=== PATIENT | male | born 1935 | race Caucasian/White ===

== ENCOUNTER 2018-04-18 10:21 | Inpatient (IN) | payer BC ==
[~2018-04-18] VITALS: Ht 188 cm; Wt 89.9 kg
[2018-04-18] MEDS ORDERED: CALCIUM CITRAT950 MG (11:05)
[2018-04-18] MEDS ORDERED: KLONOPIN 0.5MG0.5 MG PO (11:06)
[2018-04-18] MEDS ORDERED: FIRMAGON80 MG SQ (11:10)
[2018-04-18] MEDS ORDERED: LASIX 20MG TABL20 MG PO (11:10)
[2018-04-18] MEDS ORDERED: JANTOVEN5 MG PO (11:11)
[2018-04-18] MEDS ORDERED: REMERON 15M15 MG/TA1 PO (11:12)
[2018-04-18] MEDS ORDERED: LUMIGAN 5 ML5 M1 OP (11:12)
[2018-04-18] MEDS ORDERED: KLOR-CON 1010 MEQ PO (11:12)
[2018-04-18] MEDS ORDERED: K-TAB10 (11:13)
[2018-04-18] MEDS ORDERED: SENOKOT S 50 MG1 TAB PO (11:14)
[2018-04-18] MEDS ORDERED: BETIMOL 0.5% OPH5 ML OP (11:14)
[2018-04-18] MEDS ORDERED: VITAMIN D31000 I1 PO (11:15)
[2018-04-18] MEDS ORDERED: XGEVA120 MG/1.7 SQ (11:16)
[2018-04-18 11:55] LABS: BASO # 0.1 (0.0-0.2); BASO % 0.3 % (0.0-2.0); EOS % 0.1 % (0-4.0); GRAN % 84.6 % (42.2-75.2); HEMOGLOBIN 11.9 g/dl (13.5-18.0); LYMPH # 1.1 (1.2-3.4); LYMPH % 6.3 % (20.0-51.0); MEAN CELL VOLUME 100 fl (80.0-100.0); MEAN CORPUSCULAR HEMOGLOBIN 33 pg (27.0-31.0); MEAN CORPUSCULAR HGB CONC 33 g/dl (33.0-37.0); MEAN PLATELET VOLUME 9.9 fl (7.4-10.4); MONO # 1.4 (0.1-0.6); PLATELET COUNT 241 K/mm3 (130-400); RED BLOOD COUNT 3.57 M/mm3 (4.20-5.60); REDCELL DISTRIBUTION WIDTH-CV 15.4 % (11.5-14.5)
[2018-04-18 11:56] LABS: HEMATOCRIT 35.8 % (42.0-52.0)
[2018-04-18 12:00] LABS: PROTHROMBIN TIME 23.2 SECONDS (9.7-12.8)
[2018-04-18 12:10] LABS: ALBUMIN 3.2 gm/dL (3.5-5.0); BILIRUBIN,TOTAL 0.4 mg/dL (0.0-1.0); CALCIUM 7.8 mg/dL (8.4-10.2); CREATININE, serum 0.63 mg/dL (0.66-1.25); POTASSIUM 3.5 mmol/L (3.4-5.0); TOTAL PROTEIN 5.8 gm/dL (6.4-8.2)
[2018-04-18 12:21] LABS: TROPONIN-I 0.022 ng/mL (0.000-0.034)
[2018-04-18 13:26] LABS: COLLECTION METHOD CLEAN CATCH
[2018-04-18 13:34] LABS: MUCOUS Present /lpf; PH 6 (5-8); SQUAMOUS EPITHELIAL 0-2 /hpf; URINE APPEARANCE Clear; URINE BACTERIA None Seen /hpf; URINE BILIRUBIN Negative (NEGATIVE); URINE BLOOD 1+ (NEGATIVE); URINE COLOR Yellow; URINE GLUCOSE Negative (NEGATIVE); URINE KETONE Negative (NEGATIVE); URINE LEUKOCYTE ESTERASE Negative (NEGATIVE); URINE NITRATE Negative (NEGATIVE); URINE PROTEIN(semi-quant) Negative (NEGATIVE); URINE UROBILINOGEN Negative (NEGATIVE)
[2018-04-18 18:37] VITALS: BP 113/65; PULSE 96; TEMP 98.3
[2018-04-18] MEDS ORDERED: PREDNISONE 5MG5 MG PO (18:57)
[2018-04-18 20:28] VITALS: BP 109/77; PULSE 84; TEMP 98.3
[2018-04-19] VITALS (10 sets, daily range): BP systolic 96–127; BP diastolic 45–80; PULSE 78–105; TEMP 98–98.6
[2018-04-19 06:10] LABS: HEMOGLOBIN 10.7 g/dl (13.5-18.0); MEAN CELL VOLUME 101 fl (80.0-100.0); MEAN CORPUSCULAR HEMOGLOBIN 33 pg (27.0-31.0); MEAN CORPUSCULAR HGB CONC 33 g/dl (33.0-37.0); MEAN PLATELET VOLUME 10.1 fl (7.4-10.4); PLATELET COUNT 213 K/mm3 (130-400); RED BLOOD COUNT 3.23 M/mm3 (4.20-5.60); REDCELL DISTRIBUTION WIDTH-CV 15.7 % (11.5-14.5)
[2018-04-19 06:11] LABS: HEMATOCRIT 32.6 % (42.0-52.0)
[2018-04-19 06:21] LABS: CALCIUM 7.5 mg/dL (8.4-10.2); CREATININE, serum 0.64 mg/dL (0.66-1.25); MAGNESIUM 1.9 mg/dL (1.6-2.3)
[2018-04-19 06:23] LABS: INR 2.2 (0.8-3.0); PROTHROMBIN TIME 25.1 SECONDS (9.7-12.8)
[2018-04-19 06:28] LABS: BAND 6 % (0-10); LYMPHOCYTE 8 % (20.0-51.0); METAMYELOCYTE 2 % (0-0); NEUTROPHILS 73 % (42.0-75.2); PLATELET ESTIMATE NORMAL (NORMAL)
[2018-04-19 09:48] LABS: SYNOVIAL FL. MONONUCLEAR 4.4 % (0-75); SYNOVIAL FLUID RBC 21000 /mm3 (0-0)
[2018-04-19 09:49] LABS: SYNOVIAL FLUID APPEARANCE CLOUDY; SYNOVIAL FLUID COLOR BROWN
[2018-04-19 09:58] LABS: SYNOVIAL FL. MONONUCLEAR 1.8 % (0-75); SYNOVIAL FLUID RBC 28000 /mm3 (0-0); SYNOVIAL FLUID WBC 125915 /mm3 (200-600)
[2018-04-19 10:18] LABS: SYNOVIAL FLUID WBC 34590 /mm3 (200-600)
[2018-04-19 10:19] LABS: SYNOVIAL FLUID APPEARANCE CLOUDY; SYNOVIAL FLUID COLOR BROWN
[2018-04-19 12:52] LABS: FOLATE (FOLIC ACID) 14.7 ng/mL (7.0-31.4)
[2018-04-20 00:30] VITALS: BP 102/61; PULSE 88
[2018-04-20 04:26] VITALS: BP 110/42; PULSE 94; TEMP 97.5
[2018-04-20 06:34] LABS: MEAN CELL VOLUME 104 fl (80.0-100.0); MEAN CORPUSCULAR HGB CONC 32 g/dl (33.0-37.0); MEAN PLATELET VOLUME 10.3 fl (7.4-10.4); PLATELET COUNT 205 K/mm3 (130-400); RED BLOOD COUNT 2.77 M/mm3 (4.20-5.60); REDCELL DISTRIBUTION WIDTH-CV 15.9 % (11.5-14.5)
[2018-04-20 06:44] LABS: HEMATOCRIT 28.9 % (42.0-52.0); HEMOGLOBIN 9.3 g/dl (13.5-18.0); MEAN CORPUSCULAR HEMOGLOBIN 34 pg (27.0-31.0)
[2018-04-20 06:50] LABS: CALCIUM 6.5 mg/dL (8.4-10.2); CREATININE, serum 0.71 mg/dL (0.66-1.25); POTASSIUM 3.8 mmol/L (3.4-5.0)
[2018-04-20 07:23] LABS: BAND 9 % (0-10); LYMPHOCYTE 2 % (20.0-51.0); NEUTROPHILS 82 % (42.0-75.2); PLATELET ESTIMATE NORMAL (NORMAL)
[2018-04-20 08:25] VITALS: BP 120/45; PULSE 93; TEMP 98
[2018-04-20 12:11] VITALS: BP 133/54; PULSE 94; TEMP 98.1
[2018-04-20 12:11] LABS: ALBUMIN 2.5 gm/dL (3.5-5.0); BILIRUBIN,TOTAL 0.4 mg/dL (0.0-1.0)
[2018-04-20 12:30] LABS: TOTAL PROTEIN 5.2 gm/dL (6.4-8.2)
[2018-04-20 16:41] VITALS: BP 131/43; PULSE 96; TEMP 98.1
[2018-04-20 21:03] VITALS: BP 146/68; PULSE 84; TEMP 98.4
[2018-04-21] VITALS (9 sets, daily range): BP systolic 108–127; BP diastolic 43–59; PULSE 81–96; TEMP 97.8–98.8
[2018-04-21 07:52] LABS: MEAN CELL VOLUME 103 fl (80.0-100.0); MEAN CORPUSCULAR HGB CONC 33 g/dl (33.0-37.0); MEAN PLATELET VOLUME 9.9 fl (7.4-10.4); PLATELET COUNT 215 K/mm3 (130-400); RED BLOOD COUNT 2.39 M/mm3 (4.20-5.60)
[2018-04-21 07:53] LABS: HEMATOCRIT 24.5 % (42.0-52.0); HEMOGLOBIN 8.1 g/dl (13.5-18.0); MEAN CORPUSCULAR HEMOGLOBIN 34 pg (27.0-31.0)
[2018-04-21 07:54] LABS: INR 3.3 (0.8-3.0); PROTHROMBIN TIME 38.1 SECONDS (9.7-12.8)
[2018-04-21 07:57] LABS: CALCIUM 6.4 mg/dL (8.4-10.2); CREATININE, serum 0.66 mg/dL (0.66-1.25); POTASSIUM 3.1 mmol/L (3.4-5.0)
[2018-04-21 08:06] LABS: LYMPHOCYTE 8 % (20.0-51.0); NEUTROPHILS 77 % (42.0-75.2); PLATELET ESTIMATE NORMAL (NORMAL)
[2018-04-21 08:08] LABS: ANISOCYTOSIS 1+
[2018-04-21 13:12] LABS: HEMATOCRIT 24.1 % (42.0-52.0)
[2018-04-22] VITALS (7 sets, daily range): BP systolic 116–148; BP diastolic 44–61; PULSE 87–97; TEMP 97.6–98.6
[2018-04-22 06:18] LABS: INR 1.7 (0.8-3.0); PROTHROMBIN TIME 19.6 SECONDS (9.7-12.8)
[2018-04-22 06:19] LABS: BASO % 0.3 % (0.0-2.0); GRAN # 7.1 (1.4-6.5); GRAN % 76.1 % (42.2-75.2); LYMPH % 10.2 % (20.0-51.0); MEAN CELL VOLUME 102 fl (80.0-100.0); MEAN CORPUSCULAR HGB CONC 33 g/dl (33.0-37.0); MEAN PLATELET VOLUME 10.1 fl (7.4-10.4); MONO # 1.2 (0.1-0.6); MONO % 12.9 % (1.7-9.3); PLATELET COUNT 211 K/mm3 (130-400); REDCELL DISTRIBUTION WIDTH-CV 15.8 % (11.5-14.5)
[2018-04-22 06:22] LABS: HEMATOCRIT 21.4 % (42.0-52.0); HEMOGLOBIN 7.1 g/dl (13.5-18.0); MEAN CORPUSCULAR HEMOGLOBIN 34 pg (27.0-31.0)
[2018-04-22 06:45] LABS: CALCIUM 6.3 mg/dL (8.4-10.2); CREATININE, serum 0.55 mg/dL (0.66-1.25); POTASSIUM 3.5 mmol/L (3.4-5.0)
[2018-04-23] VITALS (8 sets, daily range): BP systolic 91–142; BP diastolic 38–58; PULSE 42–96; TEMP 97.2–98.3
[2018-04-23 06:02] LABS: BASO % 0.4 % (0.0-2.0); GRAN # 5.9 (1.4-6.5); GRAN % 73.2 % (42.2-75.2); LYMPH # 0.9 (1.2-3.4); LYMPH % 11.6 % (20.0-51.0); MEAN CELL VOLUME 98 fl (80.0-100.0); MEAN CORPUSCULAR HGB CONC 33 g/dl (33.0-37.0); MEAN PLATELET VOLUME 9.4 fl (7.4-10.4); MONO # 1.2 (0.1-0.6); MONO % 14.3 % (1.7-9.3); PLATELET COUNT 248 K/mm3 (130-400); RED BLOOD COUNT 2.31 M/mm3 (4.20-5.60); REDCELL DISTRIBUTION WIDTH-CV 17.4 % (11.5-14.5)
[2018-04-23 06:03] LABS: HEMATOCRIT 22.6 % (42.0-52.0); HEMOGLOBIN 7.5 g/dl (13.5-18.0); MEAN CORPUSCULAR HEMOGLOBIN 32 pg (27.0-31.0)
[2018-04-23 06:04] LABS: INR 1.4 (0.8-3.0); PROTHROMBIN TIME 16.4 SECONDS (9.7-12.8)
[2018-04-23 06:10] LABS: CALCIUM 6.6 mg/dL (8.4-10.2); CREATININE, serum 0.54 mg/dL (0.66-1.25); POTASSIUM 3.5 mmol/L (3.4-5.0)
[2018-04-24 05:13] VITALS: BP 103/50; PULSE 89; TEMP 98.2
[2018-04-24 06:09] LABS: BASO % 0.6 % (0.0-2.0); EOS % 0.1 % (0-4.0); GRAN # 4.9 (1.4-6.5); GRAN % 68.5 % (42.2-75.2); LYMPH # 1.1 (1.2-3.4); MEAN CELL VOLUME 97 fl (80.0-100.0); MEAN CORPUSCULAR HGB CONC 34 g/dl (33.0-37.0); MEAN PLATELET VOLUME 9.7 fl (7.4-10.4); MONO % 14.2 % (1.7-9.3); PLATELET COUNT 311 K/mm3 (130-400); RED BLOOD COUNT 2.67 M/mm3 (4.20-5.60); REDCELL DISTRIBUTION WIDTH-CV 17.1 % (11.5-14.5)
[2018-04-24 06:19] LABS: ALBUMIN 2.6 gm/dL (3.5-5.0); CALCIUM 7.2 mg/dL (8.4-10.2); CREATININE, serum 0.57 mg/dL (0.66-1.25); PHOSPHOROUS 1.4 mg/dL (2.5-4.5); POTASSIUM 3.5 mmol/L (3.4-5.0)
[2018-04-24 06:22] LABS: HEMOGLOBIN 8.7 g/dl (13.5-18.0); MEAN CORPUSCULAR HEMOGLOBIN 33 pg (27.0-31.0)
[2018-04-24 08:52] VITALS: BP 113/48; PULSE 88; TEMP 97.5
[2018-04-24 12:50] VITALS: BP 134/64; PULSE 109; TEMP 98.5
[2018-04-24 16:00] VITALS: BP 103/51; PULSE 88; TEMP 97.9
[2018-04-24 20:00] VITALS: BP 102/49; PULSE 97; TEMP 97.2
[2018-04-25] VITALS: BP 138/79; PULSE 81; TEMP 97.6
[2018-04-25 04:00] VITALS: BP 138/59; PULSE 84; TEMP 97.7
[2018-04-25 05:44] LABS: BASO # 0.1 (0.0-0.2); BASO % 1.2 % (0.0-2.0); EOS % 0.3 % (0-4.0); GRAN # 4.5 (1.4-6.5); GRAN % 66.3 % (42.2-75.2); HEMATOCRIT 24.1 % (42.0-52.0); LYMPH # 1.1 (1.2-3.4); MEAN CELL VOLUME 98 fl (80.0-100.0); MEAN CORPUSCULAR HEMOGLOBIN 33 pg (27.0-31.0); MEAN CORPUSCULAR HGB CONC 33 g/dl (33.0-37.0); MEAN PLATELET VOLUME 9.2 fl (7.4-10.4); MONO # 1.1 (0.1-0.6); MONO % 15.8 % (1.7-9.3); PLATELET COUNT 321 K/mm3 (130-400); RED BLOOD COUNT 2.45 M/mm3 (4.20-5.60); REDCELL DISTRIBUTION WIDTH-CV 16.9 % (11.5-14.5)
[2018-04-25 06:05] LABS: CALCIUM 6.8 mg/dL (8.4-10.2); CREATININE, serum 0.54 mg/dL (0.66-1.25); PHOSPHOROUS 2.3 mg/dL (2.5-4.5); POTASSIUM 3.6 mmol/L (3.4-5.0)
[2018-04-25 09:07] VITALS: BP 80/61; PULSE 91; TEMP 98
[2018-04-25 09:58] VITALS: BP 124/53
[2018-04-25 11:36] VITALS: BP 109/46; PULSE 82; TEMP 97.5
[2018-04-25 16:24] VITALS: BP 117/52; PULSE 97; TEMP 97.6
[2018-04-26 04:46] VITALS: BP 138/66; PULSE 95; TEMP 97.7
[2018-04-26 07:28] LABS: BASO # 0.1 (0.0-0.2); BASO % 1.4 % (0.0-2.0); EOS # 0.1 (0.0-0.7); EOS % 0.9 % (0-4.0); GRAN % 65.1 % (42.2-75.2); LYMPH # 1.2 (1.2-3.4); LYMPH % 16.1 % (20.0-51.0); MEAN CELL VOLUME 98 fl (80.0-100.0); MEAN CORPUSCULAR HGB CONC 33 g/dl (33.0-37.0); MEAN PLATELET VOLUME 9.3 fl (7.4-10.4); MONO # 1.2 (0.1-0.6); PLATELET COUNT 345 K/mm3 (130-400); RED BLOOD COUNT 2.52 M/mm3 (4.20-5.60); REDCELL DISTRIBUTION WIDTH-CV 16.6 % (11.5-14.5)
[2018-04-26 07:30] LABS: HEMATOCRIT 24.7 % (42.0-52.0); HEMOGLOBIN 8.2 g/dl (13.5-18.0); MEAN CORPUSCULAR HEMOGLOBIN 33 pg (27.0-31.0)
[2018-04-26 07:38] LABS: CALCIUM 7.4 mg/dL (8.4-10.2); CREATININE, serum 0.56 mg/dL (0.66-1.25); MAGNESIUM 1.8 mg/dL (1.6-2.3); POTASSIUM 3.5 mmol/L (3.4-5.0)
[2018-04-26 08:34] VITALS: BP 127/58; PULSE 94; TEMP 97.3
[2018-04-26 11:59] VITALS: BP 114/49; PULSE 80; TEMP 98.1
[2018-04-26] MEDS ORDERED: ASPIRIN 81M81 MG/TA2 PO (16:08)
[2018-04-26] MEDS ORDERED: REMERON 15M15 MG/TA1 PO (16:09)
[2018-04-26 16:10] VITALS: BP 112/50; PULSE 88; TEMP 97.4
[2018-04-26] MEDS ORDERED: ROCEPHIN VIA1 G/VIAL IV (16:15)
[2018-04-26] MEDS ORDERED: VANCOCIN HCL1 GM IV (16:15)
[2018-04-26 17:46] VITALS: BP 112/50; PULSE 88; TEMP 97.4
[2018-04-26 20:00] VITALS: BP 116/56; PULSE 84; TEMP 98
[2018-04-27] VITALS: BP 108/52; PULSE 91; TEMP 98.1
[2018-04-27 04:00] VITALS: BP 110/54; PULSE 89; TEMP 98
== END 2018-04-27 05:10 | DRG 488 ==
LOC: COL.ER 10:21 → SURG 15:12
PROVIDERS: Emergency Medicine; Family Medicine; Orthopaedic Surgery; Orthopaedic Surgery Sports Medicine; Physician Assistant
PROC: 0SBC4ZZ Excision of Right Knee Joint, Percutaneous Endoscopic Approach (ICD-10-PCS; 2018-04-19)
PROC: 0S9D40Z Drainage of Left Knee Joint with Drainage Device, Percutaneous Endoscopic Approach (ICD-10-PCS; 2018-04-19)
PROC: 0S9C40Z Drainage of Right Knee Joint with Drainage Device, Percutaneous Endoscopic Approach (ICD-10-PCS; 2018-04-19)
PROC: 0SBD4ZZ Excision of Left Knee Joint, Percutaneous Endoscopic Approach (ICD-10-PCS; principal; 2018-04-19 15:45)
DX: M00.9 Pyogenic arthritis, unspecified (principal); C79.51 Secondary malignant neoplasm of bone; D62 Acute posthemorrhagic anemia; Q21.1 Atrial septal defect; E87.1 Hypo-osmolality and hyponatremia; E44.0 Moderate protein-calorie malnutrition; Z66 Do not resuscitate; C61 Malignant neoplasm of prostate; M22.42 Chondromalacia patellae, left knee; M22.41 Chondromalacia patellae, right knee; Z85.828 Personal history of other malignant neoplasm of skin; Z86.73 Personal history of transient ischemic attack (TIA), and cerebral infarction without residual deficits; Z79.01 Long term (current) use of anticoagulants; E83.39 Other disorders of phosphorus metabolism; E87.6 Hypokalemia; R60.1 Generalized edema; E83.51 Hypocalcemia; Z68.25 Body mass index [BMI] 25.0-25.9, adult; F41.9 Anxiety disorder, unspecified
CPT/HCPCS: 99232-AI; 99233-AI; A4216; C1751; G0378; J0171; J0690; J0696; J1650; J1940; J2270; J2405; J2704; J3010; J3370; J7030; J7040; J7050; J7512; P9040